=== PATIENT | female | born 1965 | race Two or more races ===

== ENCOUNTER 2018-11-23 09:00 | Emergency (ER) | payer MEDICAID ==
[~2018-11-23] VITALS: Ht 154.9 cm; Wt 121.6 kg
[2018-11-23 09:43] LABS: Basophils # (auto) 0.1 uL; Basophils % (auto) 1.5 % (0.0-2.0); Eosinophils # (auto) 0.1 uL; Eosinophils % (auto) 1.3 % (0.0-7.0); Hematocrit 44.8 % (36.0-46.0); Lymphocytes % (auto) 23.3 % (10.0-50.0); Mean Corpuscular Hemoglobin 28.3 pg (28.0-32.0); Mean Corpuscular Hgb Conc. 33.4 g/dL (32.0-36.0); Mean Corpuscular Volume 84.6 fL (80.0-100.0); Monocytes # (auto) 0.8 uL; Monocytes % (auto) 9.1 % (0.0-12.0); Neutrophils # (auto) 5.7 uL; Neutrophils % (auto) 64.8 % (37.0-80.0); Platelet Count (auto) 233 10^3/uL (140-450); White Blood Cell 8.7 10^3/uL (4.4-10.8)
[2018-11-23] MEDS ORDERED: ALBUTEROL SULF 2.5 MG/0.5ML(0.5%) NEB SOLN NEB ONE ×2 (10:00→11:30)
[2018-11-23] MEDS ORDERED: IPRATROPIUM BROM 0.5 MG/2.5ML INH SOL NEB ONE ×2 (10:00→11:30)
[2018-11-23 10:01] LABS: Albumin 3.8 g/dL (3.4-5.0); BUN/Creatinine Ratio 11.7; Calcium 8.9 mg/dL (8.5-10.1); Potassium 4.3 mmol/L (3.5-5.1)
[2018-11-23 10:03] LABS: Bilirubin, Total 0.4 mg/dL (0.2-1.0); Total Protein 7.5 g/dL (6.4-8.2)
[2018-11-23 11:12] LABS: Urine Bacteria NONE SEEN /hpf (None Seen); Urine Blood Negative /uL (Negative); Urine Specific Gravity 1.025 (1.001-1.035); Urine WBC 9 /hpf (0 - 5)
[2018-11-23] MEDS ORDERED: methylPREDNISolone SOD SUCC 125 MG/2 ML VL IV ONE (11:30)
[2018-11-23] MEDS ORDERED: AZITHROMYCIN 500MG/ 250ML 250 ML IV ONE (11:30)
[2018-11-23 13:25] VITALS: BP 123/75
== END 2018-11-23 14:04 | disposition home or self-care (01) ==
LOC: ER 09:03
DX: J45.901 Unspecified asthma with (acute) exacerbation (principal); N39.0 Urinary tract infection, site not specified; E11.9 Type 2 diabetes mellitus without complications; I10 Essential (primary) hypertension
CPT/HCPCS: 36415; 71045; 80053; 81001; 85025; 93005; 94640; 96365; 96366; 96375; 99284; J0456; J2930; J7611; J7644

== ENCOUNTER 2020-10-06 10:14 | Inpatient (IN) | payer MEDICAID ==
[~2020-10-06] VITALS: Ht 154.9 cm; Wt 47.3 kg
[2020-10-06 10:54] LABS: Basophils # (auto) 0.2 10 ^3/uL (0-0.2); Basophils % (auto) 1.4 % (0.0-2.0); Eosinophils # (auto) 0 10 ^3/uL (0-0.8); Eosinophils % (auto) 0.2 % (0.0-7.0); Hematocrit 40.2 % (36.0-46.0); Hemoglobin 13.2 g/dL (12.2-16.2); Lymphocytes # (auto) 1.9 10 ^3/uL (0.4-5.4); Lymphocytes % (auto) 14.7 % (10.0-50.0); Mean Corpuscular Hemoglobin 28.6 pg (28.0-32.0); Mean Corpuscular Hgb Conc. 32.9 g/dL (32.0-36.0); Mean Corpuscular Volume 86.7 fL (80.0-100.0); Monocytes # (auto) 1.1 10 ^3/uL (0-1.3); Monocytes % (auto) 8.9 % (0.0-12.0); Neutrophils # (auto) 9.5 10 ^3/uL (1.6-8.6); Neutrophils % (auto) 74.8 % (37.0-80.0); Nucleated Red Blood Cells % 0.1 %; Platelet Count (auto) 235 10^3/uL (140-450); Red Blood Cells 4.63 10^6/uL (4.0-5.20); Red Cell Distribution Width 15.1 % (11.8-14.3); White Blood Cell 12.6 10^3/uL (4.4-10.8)
[2020-10-06] MEDS ORDERED: SODIUM CHLORIDE 0.9% 1,000 ML IV ONE ×3 (11:00→13:30)
[2020-10-06] MEDS ORDERED: ONDANSETRON HCL 4 MG/2 ML VIAL IV ONE (11:00)
[2020-10-06 11:07] LABS: Albumin 3.3 g/dL (3.4-5.0); Calcium 8.9 mg/dL (8.5-10.1)
[2020-10-06 11:11] LABS: Bilirubin, Total 0.6 mg/dL (0.2-1.0); Total Protein 6.4 g/dL (6.4-8.2)
[2020-10-06 11:56] LABS: Lipase 102 U/L (73-393); Magnesium 2.2 mg/dL (1.6-2.6)
[2020-10-06 12:03] LABS: Urine Bacteria FEW /hpf (None Seen); Urine Blood Negative /uL (Negative); Urine Mucus FEW (None Seen); Urine Specific Gravity 1.028 (1.001-1.035); Urine WBC 31 /hpf (0 - 5)
[2020-10-06] MEDS ORDERED: levoFLOXacin 500MG 100 ML IV SCH (13:00)
[2020-10-06] MEDS ORDERED: HYDROmorphone HCL 2 MG/ML VL IV PRN (13:00)
[2020-10-06] MEDS ORDERED: ONDANSETRON HCL 4 MG/2 ML VIAL IV PRN ×2 (13:15→18:30)
[2020-10-06] MEDS: SODIUM CHLORIDE 0.9% 1,000 ML IV SCH ×2 (13:23→21:15)
[2020-10-06] MEDS ORDERED: PROMETHAZINE HCL 25 MG/ML 1ML IV ONE (13:30)
[2020-10-06] MEDS ORDERED: metroNIDAZOLE 500MG/100ML 100 ML IV SCH (14:00)
[2020-10-06] MEDS ORDERED: ALBUMIN 25% 100 ML IV ONE (15:45)
[2020-10-06 16:19] LABS: INR 1.02 (0.9-1.15); Partial Thromboplastin Time 26.8 sec (23.0-31.2)
[2020-10-06] MEDS ORDERED: NOREPINEPHRINE 8 MG/250ML KIT 250 ML IV SCH (17:45)
[2020-10-06] MEDS ORDERED: NITROGLYCERIN 0.4 MG SL TAB SL PRN (18:30)
[2020-10-06] MEDS ORDERED: MORPHINE SULF INJ 2 MG/ML SYRINGE 1ML IV PRN ×2 (18:30)
[2020-10-06] MEDS ORDERED: VANCOMYCIN PER PHARMACY 0 MG IV SCH (18:45)
[2020-10-06] MEDS ORDERED: VANCOMYCIN 1GM/250ML 250 ML IV ONE (19:00)
[2020-10-07] MEDS: PIPERACILLIN-TAZOB 3.375GM 100 ML IV SCH ×2 (02:26→07:37)
[2020-10-07] MEDS: SODIUM CHLORIDE 0.9% 1,000 ML IV SCH ×2 (05:15→13:30)
[2020-10-07 07:52] LABS: Basophils # (auto) 0.1 10 ^3/uL (0-0.2); Basophils % (auto) 1.1 % (0.0-2.0); Eosinophils # (auto) 0 10 ^3/uL (0-0.8); Eosinophils % (auto) 0.4 % (0.0-7.0); Hematocrit 34.8 % (36.0-46.0); Hemoglobin 11.6 g/dL (12.2-16.2); Lymphocytes % (auto) 21.4 % (10.0-50.0); Mean Corpuscular Hemoglobin 29.1 pg (28.0-32.0); Mean Corpuscular Hgb Conc. 33.3 g/dL (32.0-36.0); Mean Corpuscular Volume 87.5 fL (80.0-100.0); Monocytes % (auto) 10.3 % (0.0-12.0); Neutrophils # (auto) 6.4 10 ^3/uL (1.6-8.6); Neutrophils % (auto) 66.8 % (37.0-80.0); Platelet Count (auto) 190 10^3/uL (140-450); Red Blood Cells 3.98 10^6/uL (4.0-5.20); Red Cell Distribution Width 14.8 % (11.8-14.3); White Blood Cell 9.5 10^3/uL (4.4-10.8)
[2020-10-07 08:12] LABS: Albumin 2.9 g/dL (3.4-5.0); Calcium 8.1 mg/dL (8.5-10.1); Potassium 3.9 mmol/L (3.5-5.1)
[2020-10-07 08:15] LABS: BUN/Creatinine Ratio 7.2; Bilirubin, Total 0.8 mg/dL (0.2-1.0); Total Protein 5.5 g/dL (6.4-8.2)
[2020-10-07] MEDS ORDERED: LEVO500T31 PO (09:41)
[2020-10-07] MEDS ORDERED: METR500T PO (09:41)
[2020-10-07] MEDS ORDERED: HYDR1TAB97 PO (09:41)
[2020-10-07] MEDS ORDERED: ACETAMINOPHEN 325 MG TAB PO PRN (09:45)
[2020-10-07] MEDS ORDERED: HYDROcodone-ACET 5/325MG TAB PO PRN (09:45)
[2020-10-07] MEDS ORDERED: ENOXAPARIN SOD 40 MG/0.4 ML SYRINGE SC SCH (10:00)
[2020-10-07] MEDS ORDERED: levoFLOXacin 500MG 100 ML IV SCH (10:00)
[2020-10-07] MEDS ORDERED: VANCOMYCIN 1GM/250ML 250 ML IV SCH (10:00)
[2020-10-07] MEDS ORDERED: MORPHINE SULF INJ 2 MG/ML SYRINGE 1ML IV PRN (10:00)
[2020-10-07] MEDS ORDERED: PANTOPRAZOLE 40 MG/10 ML VIAL INJ IV SCH (10:00)
[2020-10-07] MEDS ORDERED: metroNIDAZOLE 500MG/100ML 100 ML IV SCH (14:00)
[2020-10-07 16:32] VITALS: BP 114/75
== END 2020-10-07 17:05 | disposition home or self-care (01) | DRG 720 ==
LOC: ER 10:14 → TELE 18:24
PROVIDERS: ADMIT Internal Medicine; ATTEND Internal Medicine
PROC: 05H933Z Insertion of Infusion Device into Right Brachial Vein, Percutaneous Approach (ICD-10-PCS; principal; 2020-10-06)
PROC: B54MZZA Ultrasonography of Right Upper Extremity Veins, Guidance (ICD-10-PCS; 2020-10-06)
DX: A41.9 Sepsis, unspecified organism (principal); R65.21 Severe sepsis with septic shock; E66.01 Morbid (severe) obesity due to excess calories; K57.32 Diverticulitis of large intestine without perforation or abscess without bleeding; Z68.41 Body mass index [BMI] 40.0-44.9, adult; Z20.822 Contact with and (suspected) exposure to COVID-19; E86.0 Dehydration; I10 Essential (primary) hypertension; E11.9 Type 2 diabetes mellitus without complications; J45.909 Unspecified asthma, uncomplicated; K21.9 Gastro-esophageal reflux disease without esophagitis; Z87.11 Personal history of peptic ulcer disease; Z90.49 Acquired absence of other specified parts of digestive tract
CPT/HCPCS: 36415; 74176; 80053; 81001; 82150; 83605; 83690; 83735; 83880; 84484; 84702; 85025; 85610; 85730; 87426; 93005; 96365; 96368; 96375; C9113; G0378; J1956; J2405; J2543; J3490; P9047

== ENCOUNTER 2020-10-21 14:15 | Emergency (ER) | payer MEDICAID ==
[~2020-10-21] VITALS: Ht 154.9 cm; Wt 97.5 kg
[~2020-10-21 14:15] MED LIST: HYDR1TAB97 PO; LEVO500T31 PO; METR500T PO
[2020-10-21 14:20] VITALS: BP 114/96
[2020-10-21] MEDS ORDERED: KETOROLAC TROMETH 60MG/2ML VIAL IM ONE (16:45)
== END 2020-10-21 17:46 | disposition home or self-care (01) ==
LOC: ER 14:15
DX: S46.912A Strain of unspecified muscle, fascia and tendon at shoulder and upper arm level, left arm, initial encounter (principal); M89.9 Disorder of bone, unspecified; I10 Essential (primary) hypertension; Z79.899 Other long term (current) drug therapy; X58.XXXA Exposure to other specified factors, initial encounter; Y93.89 Activity, other specified; Y92.89 Other specified places as the place of occurrence of the external cause; Y99.8 Other external cause status
CPT/HCPCS: 73030; 96372; 99283; J1885

== ENCOUNTER 2021-12-08 07:50 | Inpatient (IN) | payer MEDICAID ==
[~2021-12-08] VITALS: Ht 162.6 cm; Wt 106.7 kg
[2021-12-08] MEDS ORDERED: SODIUM CHLORIDE 0.9% 1,000 ML IV ONE (10:30)
[2021-12-08 10:39] LABS: Basophils # (auto) 0 10 ^3/uL (0-0.2); Basophils % (auto) 0.3 % (0.0-2.0); Eosinophils # (auto) 0 10 ^3/uL (0-0.8); Eosinophils % (auto) 0.2 % (0.0-7.0); Hemoglobin 15.5 g/dL (12.2-16.2); Lymphocytes # (auto) 1.2 10 ^3/uL (0.4-5.4); Lymphocytes % (auto) 14.3 % (10.0-50.0); Mean Corpuscular Hemoglobin 29.1 pg (28.0-32.0); Mean Corpuscular Hgb Conc. 33.6 g/dL (32.0-36.0); Mean Corpuscular Volume 86.7 fL (80.0-100.0); Monocytes # (auto) 0.8 10 ^3/uL (0-1.3); Monocytes % (auto) 9.5 % (0.0-12.0); Neutrophils # (auto) 6.5 10 ^3/uL (1.6-8.6); Neutrophils % (auto) 75.7 % (37.0-80.0); Nucleated Red Blood Cells % 0.2 %; Red Blood Cells 5.31 10^6/uL (4.0-5.20); Red Cell Distribution Width 13.8 % (11.8-14.3); White Blood Cell 8.6 10^3/uL (4.4-10.8)
[2021-12-08] MEDS ORDERED: LACTATED RINGER'S 1,000 ML IV ONE (10:45)
[2021-12-08 10:52] LABS: Albumin 3.4 g/dL (3.4-5.0); Calcium 8.5 mg/dL (8.5-10.1); Potassium 4.2 mmol/L (3.5-5.1)
[2021-12-08 10:56] LABS: Bilirubin, Total 0.4 mg/dL (0.2-1.0); Total Protein 7.1 g/dL (6.4-8.2)
[2021-12-08] MEDS ORDERED: AZITHROMYCIN 500MG/ 250ML 250 ML IV ONE (14:45)
[2021-12-08] MEDS ORDERED: cefTRIAXone 1GM/50ML D5W 50 ML IV ONE (14:45)
[2021-12-08] MEDS ORDERED: NITROGLYCERIN 0.4 MG SL TAB SL PRN (16:45)
[2021-12-08] MEDS ORDERED: ACETAMINOPHEN 325 MG TAB PO PRN (16:45)
[2021-12-08] MEDS ORDERED: ONDANSETRON HCL 4 MG/2 ML VIAL IV PRN (16:45)
[2021-12-08] MEDS ORDERED: MORPHINE SULFATE INJ 2 MG/ml SYRG IV PRN ×2 (16:45)
[2021-12-08] MEDS: SODIUM CHLORIDE 0.9% 1,000 ML IV SCH (17:10)
[2021-12-08] MEDS ORDERED: OSELTAMIVIR 30 MG CAP PO SCH (17:12)
[2021-12-08] MEDS ORDERED: SODIUM CHLORIDE 0.9% 500 ML IV ONE (20:30)
[2021-12-08] MEDS ORDERED: ENOXAPARIN SOD 30 MG/0.3 ML SYRINGE SC SCH (21:00)
[2021-12-08] MEDS ORDERED: LISI20TA28 PO (23:00)
[2021-12-08] MEDS ORDERED: LORA-622 PO (23:00)
[2021-12-08] MEDS ORDERED: TRAM50TA2 PO (23:00)
[2021-12-08] MEDS ORDERED: GABA300C10 PO (23:00)
[2021-12-08] MEDS ORDERED: IBUP600T27 PO (23:00)
[2021-12-08] MEDS ORDERED: OMEP2SUS PO (23:00)
[2021-12-09] VITALS (7 sets, daily range): BP systolic 91–125; BP diastolic 52–75
[2021-12-09] MEDS: SODIUM CHLORIDE 0.9% 1,000 ML IV SCH ×3 (01:33→17:39)
[2021-12-09 05:24] LABS: Basophils # (auto) 0 10 ^3/uL (0-0.2); Basophils % (auto) 0.7 % (0.0-2.0); Eosinophils # (auto) 0 10 ^3/uL (0-0.8); Hematocrit 39.1 % (36.0-46.0); Hemoglobin 13.3 g/dL (12.2-16.2); Lymphocytes # (auto) 1.7 10 ^3/uL (0.4-5.4); Lymphocytes % (auto) 26.6 % (10.0-50.0); Mean Corpuscular Hemoglobin 29.6 pg (28.0-32.0); Mean Corpuscular Volume 87.1 fL (80.0-100.0); Monocytes # (auto) 0.8 10 ^3/uL (0-1.3); Neutrophils # (auto) 3.8 10 ^3/uL (1.6-8.6); Neutrophils % (auto) 60.7 % (37.0-80.0); Nucleated Red Blood Cells % 0.1 %; Red Blood Cells 4.49 10^6/uL (4.0-5.20); White Blood Cell 6.3 10^3/uL (4.4-10.8)
[2021-12-09 05:42] LABS: Albumin 2.7 g/dL (3.4-5.0); Calcium 7.8 mg/dL (8.5-10.1); Magnesium 2.3 mg/dL (1.6-2.6); Potassium 4.5 mmol/L (3.5-5.1)
[2021-12-09 05:48] LABS: BUN/Creatinine Ratio 23.3; Bilirubin, Total 0.2 mg/dL (0.2-1.0); Total Protein 5.6 g/dL (6.4-8.2)
[2021-12-09] MEDS: cefTRIAXone 1GM/50ML D5W 50 ML IV SCH (09:56)
[2021-12-09] MEDS: AZITHROMYCIN 500MG/ 250ML 250 ML IV SCH (09:59)
[2021-12-09] MEDS: OSELTAMIVIR 75 MG CAP PO SCH ×2 (09:59→21:03)
[2021-12-09] MEDS: HYDROcodone-ACET 5/325MG TAB PO PRN (10:00)
[2021-12-09] MEDS: guaiFENesin 200 MG/10 ML UD PO PRN (10:00)
[2021-12-09] MEDS: ALBUTEROL SULF 2.5 MG/0.5ML(0.5%) NEB SOLN NEB PRN ×2 (18:54→18:55)
[2021-12-09] MEDS ORDERED: ENOXAPARIN SOD 40 MG/0.4 ML SYRINGE SC SCH (21:00)
[2021-12-10 05:00] VITALS: BP 123/77
[2021-12-10] MEDS: SODIUM CHLORIDE 0.9% 1,000 ML IV SCH ×2 (05:01→10:25)
[2021-12-10 09:00] VITALS: BP 132/70
[2021-12-10] MEDS: ALBUTEROL SULF 2.5 MG/0.5ML(0.5%) NEB SOLN NEB PRN (09:13)
[2021-12-10] MEDS: cefTRIAXone 1GM/50ML D5W 50 ML IV SCH (09:25)
[2021-12-10] MEDS: AZITHROMYCIN 500MG/ 250ML 250 ML IV SCH (09:25)
[2021-12-10] MEDS: OSELTAMIVIR 75 MG CAP PO SCH (09:25)
[2021-12-10] MEDS: HYDROcodone-ACET 5/325MG TAB PO PRN (09:26)
[2021-12-10] MEDS: guaiFENesin 200 MG/10 ML UD PO PRN (09:26)
[2021-12-10] MEDS ORDERED: AZITTAB PO (10:57)
[2021-12-10] MEDS ORDERED: TAMIFLU PO (10:57)
[2021-12-10 13:00] VITALS: BP 119/80
[2021-12-10 13:59] VITALS: BP 132/70
== END 2021-12-10 15:15 | disposition home or self-care (01) | DRG 113 ==
LOC: ER 07:50 → TELE 16:31 → TELE-EAST 23:43
PROVIDERS: ADMIT Internal Medicine; ATTEND Internal Medicine
DX: J10.1 Influenza due to other identified influenza virus with other respiratory manifestations (principal); J96.01 Acute respiratory failure with hypoxia; N17.0 Acute kidney failure with tubular necrosis; E66.01 Morbid (severe) obesity due to excess calories; J45.909 Unspecified asthma, uncomplicated; Z20.822 Contact with and (suspected) exposure to COVID-19; I10 Essential (primary) hypertension; Z68.41 Body mass index [BMI] 40.0-44.9, adult; Z90.49 Acquired absence of other specified parts of digestive tract; Z83.3 Family history of diabetes mellitus; Z82.49 Family history of ischemic heart disease and other diseases of the circulatory system; Z82.3 Family history of stroke; Z87.11 Personal history of peptic ulcer disease
CPT/HCPCS: 36415; 36600; 70450; 71045; 80053; 82805; 83605; 83735; 84484; 85025; 87040; 87804; 93005; 94640; 96361; 96365; 96368; 96372; G0378; G9035; J0696

== ENCOUNTER 2024-01-02 19:52 | Emergency (ER) | payer MEDICAID, OTHER ==
[~2024-01-02] VITALS: Ht 160 cm; Wt 85.0 kg
[~2024-01-02 19:52] MED LIST changes: +ALBU18; +AZITTAB PO; +BACL10TA PO; +GABA-1250 PO; +IBUP-1454 PO; +LISI20TA56 PO; +LORA-622 PO; +OMEP2SUS PO; +PRED20TA2 PO; +TAMIFLU PO; +TRAM50TA2 PO
[2024-01-02 20:53] VITALS: PULSE 68; O2SAT 95
[2024-01-02] MEDS: HYDROcodone-ACET 10/325MG TAB PO ONE (22:00)
[2024-01-02] MEDS ORDERED: IBUP-1455 PO (22:46)
[2024-01-02] MEDS ORDERED: HYDR-4902 PO (22:46)
[2024-01-02 23:00] VITALS: BP 99/62; PULSE 51; RESP 16; O2SAT 95
== END 2024-01-02 23:30 | disposition home or self-care (01) ==
LOC: EDUNIT# 19:52 → EDBD 19:52 → ER 19:52
DX: S16.1XXA Strain of muscle, fascia and tendon at neck level, initial encounter (principal); S80.02XA Contusion of left knee, initial encounter; S80.01XA Contusion of right knee, initial encounter; S50.02XA Contusion of left elbow, initial encounter; J45.909 Unspecified asthma, uncomplicated; I10 Essential (primary) hypertension; Z90.49 Acquired absence of other specified parts of digestive tract; Z79.899 Other long term (current) drug therapy; V89.2XXA Person injured in unspecified motor-vehicle accident, traffic, initial encounter; Y93.89 Activity, other specified; Y92.89 Other specified places as the place of occurrence of the external cause; Y99.8 Other external cause status
CPT/HCPCS: 72040; 73080; 73562

== ENCOUNTER 2024-10-18 13:58 | Emergency (ER) | payer MEDICAID, OTHER ==
[~2024-10-18] VITALS: Ht 157.5 cm; Wt 95.4 kg
[~2024-10-18 13:58] MED LIST changes: +HYDR-4902 PO; +IBUP-1455 PO
[2024-10-18 14:15] VITALS: PULSE 78; RESP 20; TEMP 98.4; O2SAT 95
[2024-10-18 14:16] VITALS: BP 138/67
--- NOTE | 2024-10-18 23:22 | PRN ---
Misceleneous Note Note Note The patient was not found x 3 times independently by the RN team, admitting and myself in the entire Emergency department and around. Noted and shared with the care team. Discussed with RONALD Allen RESIDENT Oct 18, 2024 23:22
--- NOTE | 2024-10-19 01:20 | PRN ---
Misceleneous Note Note Note The patient was searched in the entire emergency department and the area around, independently by RN team and admitting team. Patient is deemed eloped. Discussed with RONALD Allen RESIDENT Oct 19, 2024 01:20
--- NOTE | 2024-10-19 19:11 | ECG ---
[facility] Test Date: 2024-10-18 Test Time: 14:15:04 Pat Name: BELLE LONG Department: ED Room: Gender: F Skid Wrapper: MARILY : 1965 Requested By: RODRÍGUEZ MONTES Order Number: [id number] Reading MD: Measurements Intervals [place] Rate: 78 P: 62 CA: 153 QRS: 77 QRSD: 86 T: 46 QT: 386 QTc: 440 Interpretive Statements Sinus rhythm Low voltage, precordial leads Please click the below link to view image of tracing.
== END 2024-10-19 02:08 | disposition left against medical advice (07) ==
LOC: ER 13:58
DX: R05.9 Cough, unspecified (principal); R50.9 Fever, unspecified; J02.9 Acute pharyngitis, unspecified; M79.10 Myalgia, unspecified site; Z53.21 Procedure and treatment not carried out due to patient leaving prior to being seen by health care provider
CPT/HCPCS: 93005